=== PATIENT | female | born 1955 | race African-American/Black ===

== ENCOUNTER 2021-12-15 12:19 | Observation (INO) | payer OTHER ==
[2021-12-15] MEDS ORDERED: ACETAMINOPHEN 1000 MG/100 ML BAG IVPB ONE (13:40)
[2021-12-15] MEDS ORDERED: ACETAMINOPHEN INJECTION 100 ML IVPB ONE (14:11)
[2021-12-15 14:15] LABS: BASO % 0.7 % (0-2.0); EOS % 1.7 % (0-4.5); HEMATOCRIT 36.8 % (32.4-45.2); HEMOGLOBIN 11.8 GM/dL (10.7-15.3); LYMPH % 35.6 % (8-40); MCH 25.4 pg (25.7-33.7); MCHC 32.2 g/dl (32.0-36.0); MEAN CELL VOLUME 78.8 fl (80-96); MEAN PLT VOLUME 8.2 fl (7.5-11.1); MONO % 6.8 % (3.8-10.2); NEUT % 55.2 % (42.8-82.8); PLATELET COUNT 215 10^3/uL (134-434); RBC 4.66 M/mm3 (3.60-5.2); RDW 13.8 % (11.6-15.6); WHITE BLOOD COUNT 5.2 K/mm3 (4.0-10.0)
[2021-12-15 14:22] LABS: CHLORIDE 107 mmol/L (98-107); SODIUM 142 mmol/L (136-145)
[2021-12-15 14:24] LABS: ANION GAP 6 MMOL/L (8-16); BLOOD UREA NITROGEN 12.7 mg/dL (7-18); CALCIUM 9.3 mg/dL (8.5-10.1); CO2 29 mmol/L (21-32); GLUCOSE,RANDOM 107 mg/dL (74-106)
[2021-12-15] MEDS ORDERED: MAG HYDROX/AL HYDROX/SIMETH 30 ML UNIT-DOSE CUP PO ONE (14:26)
[2021-12-15] MEDS ORDERED: FAMOTIDINE 20 MG/50 ML IVPB 20 MG/50 ML MG IVPB ONE ×2 (14:26→14:38)
[2021-12-15 14:28] LABS: CREATININE 0.8 mg/dL (0.55-1.3); SGOT/AST 17 U/L (15-37); SGPT/ALT 33 U/L (13-61)
[2021-12-15 14:30] LABS: BILIRUBIN,TOTAL 0.4 mg/dL (0.2-1); TOT PROT 7.5 g/dl (6.4-8.2)
[2021-12-15 14:31] LABS: ALK PHOS 72 U/L (45-117)
[2021-12-15] MEDS ORDERED: ASPIRIN 325 MG ENTERIC COATED TABLET (FP) PO ONE (14:33)
[2021-12-15] MEDS ORDERED: MAG HYDROX/AL HYDROX/SIMETH 30 ML UNIT-DOSE CUP ONE (14:38)
[2021-12-15] MEDS ORDERED: ASPIRIN 325 MG ENTERIC COATED TABLET (FP) ONE (14:38)
[2021-12-15] MEDS ORDERED: SODIUM CHLORIDE 0.9% 500 ML INFUS.BAG IV ONE (17:02)
[2021-12-15] MEDS ORDERED: ACETAMINOPHEN 325 MG TABLET (FP) PO PRN (21:46)
[2021-12-16 06:39] LABS: BASO % 0.7 % (0-2.0); EOS % 2.1 % (0-4.5); HEMATOCRIT 36.4 % (32.4-45.2); HEMOGLOBIN 11.6 GM/dL (10.7-15.3); LYMPH % 34.1 % (8-40); MCHC 31.9 g/dl (32.0-36.0); MEAN CELL VOLUME 78.4 fl (80-96); MEAN PLT VOLUME 8.4 fl (7.5-11.1); MONO % 6.7 % (3.8-10.2); NEUT % 56.4 % (42.8-82.8); PLATELET COUNT 226 10^3/uL (134-434); RBC 4.65 M/mm3 (3.60-5.2); RDW 13.8 % (11.6-15.6); WHITE BLOOD COUNT 4.9 K/mm3 (4.0-10.0)
[2021-12-16 06:57] LABS: ALBUMIN 3.4 g/dl (3.4-5.0); CALCIUM 8.2 mg/dL (8.5-10.1); MAGNESIUM 2.2 mg/dL (1.8-2.4)
[2021-12-16 07:00] LABS: CREATININE 0.6 mg/dL (0.55-1.3)
[2021-12-16 07:02] LABS: BILIRUBIN,TOTAL 0.4 mg/dL (0.2-1); TOT PROT 6.8 g/dl (6.4-8.2)
[2021-12-16] MEDS: INSULIN SLIDING SCALE (NOVOLOG) 1 VIAL SQ SCH ×4 (07:06→21:34)
[2021-12-16] MEDS ORDERED: LISINOPRIL 10 MG TABLET ONE (08:26)
[2021-12-16] MEDS ORDERED: ENOXAPARIN NA (PORCINE) 40 MG/0.4 ML DISP.SYRIN SQ ONE ×2 (08:27→11:09)
[2021-12-16] MEDS: ENOXAPARIN NA (PORCINE) 40 MG/0.4 ML DISP.SYRIN SQ SCH (10:30)
[2021-12-16] MEDS: LISINOPRIL 10 MG TABLET PO SCH (10:30)
[2021-12-16] MEDS ORDERED: PANTOPRAZOLE 40 MG TABLET PO ONE (16:15)
[2021-12-16] MEDS ORDERED: ASPIRIN 81 MG CHEWABLE TABLETS ONE (16:15)
[2021-12-16] MEDS ORDERED: GABAPENTIN 100 MG CAPSULE ONE (16:16)
[2021-12-16] MEDS: ASPIRIN COATED 81 MG TABLET.EC PO SCH (16:23)
[2021-12-16] MEDS: GABAPENTIN 100 MG CAPSULE PO SCH ×3 (16:23→21:34)
[2021-12-16] MEDS: PANTOPRAZOLE 40 MG TABLET PO SCH (16:23)
[2021-12-16] MEDS ORDERED: ROSUVASTATIN CA 20 MG TABLET PO SCH ×2 (22:00)
[2021-12-17 03:40] VITALS: RESP 20; BMI 27.0
[2021-12-17] MEDS: GABAPENTIN 100 MG CAPSULE PO SCH ×2 (06:11→16:46)
[2021-12-17] MEDS: INSULIN SLIDING SCALE (NOVOLOG) 1 VIAL SQ SCH ×3 (06:12→16:42)
[2021-12-17 07:35] LABS: BASO % 0.9 % (0-2.0); EOS % 3.5 % (0-4.5); HEMATOCRIT 36.9 % (32.4-45.2); HEMOGLOBIN 11.5 GM/dL (10.7-15.3); LYMPH % 38.5 % (8-40); MCH 24.5 pg (25.7-33.7); MCHC 31.1 g/dl (32.0-36.0); MEAN CELL VOLUME 78.8 fl (80-96); MEAN PLT VOLUME 8.6 fl (7.5-11.1); MONO % 7.2 % (3.8-10.2); NEUT % 49.9 % (42.8-82.8); PLATELET COUNT 216 10^3/uL (134-434); RBC 4.68 M/mm3 (3.60-5.2); RDW 14.1 % (11.6-15.6); WHITE BLOOD COUNT 4.3 K/mm3 (4.0-10.0)
[2021-12-17 08:01] LABS: CALCIUM 8.6 mg/dL (8.5-10.1)
[2021-12-17 08:02] LABS: ALBUMIN 3.4 g/dl (3.4-5.0); BLOOD UREA NITROGEN 11.7 mg/dL (7-18)
[2021-12-17 08:05] LABS: CREATININE 0.7 mg/dL (0.55-1.3)
[2021-12-17 08:06] LABS: BILIRUBIN,TOTAL 0.3 mg/dL (0.2-1); TOT PROT 6.5 g/dl (6.4-8.2)
[2021-12-17 08:56] VITALS: PULSE 62; TEMP 98.2
[2021-12-17] MEDS ORDERED: LIDOCAINE 5% TOPICAL PATCH TP SCH (11:45)
[2021-12-17] MEDS ORDERED: REGADENOSON 0.4 MG/5 ML PRE-FILLED SYRINGE IVPUSH ONE ×2 (13:51→15:15)
[2021-12-17 16:42] VITALS: BP 145/81
[2021-12-17] MEDS: LISINOPRIL 10 MG TABLET PO SCH (16:43)
[2021-12-17] MEDS: PANTOPRAZOLE 40 MG TABLET PO SCH (16:44)
[2021-12-17] MEDS: ASPIRIN COATED 81 MG TABLET.EC PO SCH (16:44)
[2021-12-17] MEDS: ENOXAPARIN NA (PORCINE) 40 MG/0.4 ML DISP.SYRIN SQ SCH (16:44)
[2021-12-17] MEDS ORDERED: LIDOCAINE PATCH REMOVAL MC SCH (22:00)
== END 2021-12-17 18:03 | disposition home or self-care (01) ==
LOC: JER 12:19 → JERBED 13:46 → J4W 12-16 20:25
PROVIDERS: ADMIT Internal Medicine; ATTEND Internal Medicine
PROC: 3E033NZ Introduction of Analgesics, Hypnotics, Sedatives into Peripheral Vein, Percutaneous Approach (ICD-10-PCS; principal; 2021-12-15)
PROC: 3E023GC Introduction of Other Therapeutic Substance into Muscle, Percutaneous Approach (ICD-10-PCS; 2021-12-15)
PROC: 3E033GC Introduction of Other Therapeutic Substance into Peripheral Vein, Percutaneous Approach (ICD-10-PCS; 2021-12-15)
PROC: 3E0337Z Introduction of Electrolytic and Water Balance Substance into Peripheral Vein, Percutaneous Approach (ICD-10-PCS; 2021-12-15)
DX: R07.9 Chest pain, unspecified (principal); E11.9 Type 2 diabetes mellitus without complications
CPT/HCPCS: 36415; 71046-TC-FY; 71275-TC; 78452-TC; 80053; 80061; 82550; 82553; 82962; 83735; 84100; 84439; 84443; 84484; 85025; 93005; 93010; 93017; 93306-TC; 96365; 96372; 96375; 99285-25; A9502; C9803-CS; G0378; J2785; U0003; U0005

== ENCOUNTER 2022-03-06 09:33 | Day surgery (SDC) | payer OTHER ==
[2022-03-01 10:38] VITALS: BMI 27.4
[2022-03-06 12:08] VITALS: RESP 20; TEMP 98
[2022-03-06 13:42] VITALS: BP 112/66; PULSE 90
== END 2022-03-06 13:25 | disposition home or self-care (01) ==
LOC: FASU-ENDO 09:33
PROVIDERS: ATTEND Internal Medicine Gastroenterology
PROC: 0DB78ZX Excision of Stomach, Pylorus, Via Natural or Artificial Opening Endoscopic, Diagnostic (ICD-10-PCS; 2022-03-06)
PROC: 0DB48ZX Excision of Esophagogastric Junction, Via Natural or Artificial Opening Endoscopic, Diagnostic (ICD-10-PCS; 2022-03-06)
PROC: 0DB98ZX Excision of Duodenum, Via Natural or Artificial Opening Endoscopic, Diagnostic (ICD-10-PCS; principal; 2022-03-06 11:39)
DX: K29.70 Gastritis, unspecified, without bleeding (principal); K21.00 Gastro-esophageal reflux disease with esophagitis, without bleeding; K25.3 Acute gastric ulcer without hemorrhage or perforation; B96.81 Helicobacter pylori [H. pylori] as the cause of diseases classified elsewhere
CPT/HCPCS: 82962; 88305-TC; 88342-TC

== ENCOUNTER 2022-05-15 11:18 | Day surgery (SDC) | payer OTHER ==
[2022-05-02 11:36] VITALS: BMI 27.4
[2022-05-15 12:08] VITALS: RESP 18; TEMP 98
[2022-05-15 12:30] VITALS: BP 128/75; PULSE 76
== END 2022-05-15 13:13 | disposition home or self-care (01) ==
LOC: FASU-ENDO 11:18
PROVIDERS: ATTEND Internal Medicine Gastroenterology
PROC: 0DB68ZX Excision of Stomach, Via Natural or Artificial Opening Endoscopic, Diagnostic (ICD-10-PCS; principal; 2022-05-15 11:55)
DX: Z13.810 Encounter for screening for upper gastrointestinal disorder (principal); K31.9 Disease of stomach and duodenum, unspecified; Z87.11 Personal history of peptic ulcer disease
CPT/HCPCS: 82962; 88305-TC; 88342-TC